=== PATIENT | female | born 1995 | race Two or more races ===

== ENCOUNTER 2017-02-23 16:52 | Emergency (ER) | payer OTHER ==
[2017-02-23 16:57] VITALS: BP 148/88
--- NOTE | 2017-02-23 18:27 | RAD ---
HISTORY: Pain after blood draw COMPARISONS: None relevant TECHNIQUE: Multiple transverse and longitudinal ultrasound images were obtained of the right upper extremity from the level of the internal jugular vein inferiorly through to the infra-cubital veins using grayscale, color Doppler, and spectral Doppler imaging with and without compression and with augmentation. Comparison images were obtained of the contralateral internal jugular vein and subclavian vein. FINDINGS: VEINS: The venous system of the right upper extremity is compressible throughout its course, with normal flow on color Doppler imaging and normal response to augmentation on spectral Doppler imaging. SOFT TISSUES: Unremarkable. OTHER FINDINGS: None. IMPRESSION: NO RIGHT UPPER EXTREMITY DEEP VEIN THROMBOSIS
--- NOTE | 2017-02-23 18:40 | ED ---
Upper Extremity Pain - HPI Summary HPI Summary: 21F presents with right arm pain today. She had blood drawn yesterday. She complains of deltoid pain. She states it is best when she doesn't move her arm. She denies any numbness or tingling. She states she has had this in the past with blood draws but it was always the vein that was irritated. She is right handed. - History of Current Complaint Chief Complaint: EDExtremityUpper Stated Complaint: RIGHT ARM PAIN Time Seen by Provider: 02/23/17 17:00 - Allergies/Home Medications Allergies/Adverse Reactions: Allergies Allergy/AdvReac Type Severity Reaction Status Date / Time No Known Allergies Allergy Verified 02/23/17 16:57 PMH/Surg Hx/FS Hx/Imm Hx Endocrine/Hematology History: Denies: Hx Anticoagulant Therapy Cardiovascular History: Denies: Hx Hypertension Infectious Disease History: Denies: Traveled Outside the [place] in Last 30 Days - Family History Known Family History: Negative: Cardiac Disease - Social History Alcohol Use: Occasionally Substance Use Type: Reports: None Smoking Status (MU): Never Smoked Tobacco Review of Systems Negative: Fever Negative: Chest Pain Negative: Shortness Of Breath Positive: Myalgia - right deltoid pain All Other Systems Reviewed And Are Negative: Yes Physical Exam Triage Information Reviewed: Yes Vital Signs On Initial Exam: Initial Vitals Temp Pulse Resp BP Pulse Ox 98.8 F 62 16 148/88 100 02/23/17 16:55 02/23/17 16:55 02/23/17 16:55 02/23/17 16:55 02/23/17 16:55 Vital Signs Reviewed: Yes Appearance: Positive: Well-Appearing Skin: Positive: Warm, Dry Head/Face: Positive: Normal Head/Face Inspection Eyes: Positive: Normal, Conjunctiva Clear Respiratory/Lung Sounds: Positive: Clear to Auscultation, Breath Sounds Present Cardiovascular: Positive: Normal, RRR Musculoskeletal: Positive: Limited @ - right shoulder due to pain, Other - tender over right deltoid, good pulses, capillary refill<2 secs, 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 - Ultrasound No standard instances Ultrasound Interpretation: Positive (See Comments) - IMPRESSION: NO RIGHT UPPER EXTREMITY DEEP VEIN THROMBOSIS Ultrasound Interpretation Completed By: Radiologist Course/Dx - Course Course Of Treatment: 21F presents with right arm pain today. She had blood drawn yesterday. She complains of deltoid pain. on exam tender over right deltoid. u/s normal. discussed take tyenlol or ibuprofen for pain - Diagnoses Differential Diagnosis/HQI/PQRI: Positive: Strain, Sprain, Other - DVT Provider Diagnoses: Right arm pain Discharge - Discharge Plan Condition: Good Disposition: HOME Referrals: Elizabeth Guevara MD [Primary Care Provider] - Additional Instructions: Take Tylenol or ibuprofen every 6 hours as needed for pain Apply ice/heat whichever is more comfortable Follow up with primary care physician within 7 days if no improvement Return to ED if develop any new or worsening symptoms
== END 2017-02-23 19:27 | disposition home or self-care (01) ==
LOC: ED 16:52
DX: M79.601 Pain in right arm (principal)
CPT/HCPCS: 99281